=== PATIENT | female | born 1980 | race African-American/Black ===

== ENCOUNTER 2020-12-03 23:19 | Emergency (ER) | payer MEDICAID ==
[~2020-12-03] VITALS: Ht 162.6 cm; Wt 87.0 kg
[2020-12-04] MEDS ORDERED: IBUPROFEN 600MG TABLET PO STA (00:10)
[2020-12-04 00:28] LABS: BASOPHILS % 0.4 % (0.0-2.0); EOSINOPHILS % 2.5 % (0.0-5.0); HEMATOCRIT. 35.8 % (36.0-48.0); HEMOGLOBIN. 11.2 g/dL (12.0-16.0); LYMPHOCYTES % 29.7 % (20.0-50.0); MEAN CORPUSCULAR HEMOGLOBIN 24.3 pg (28.0-32.0); MEAN CORPUSCULAR VOLUME 77.7 fL (81.0-99.0); MONOCYTES % 8.1 % (2.0-8.0); NEUTROPHILS % 59.3 % (40.0-76.0); PLATELET 274 x1000/uL (130-400); RED CELL DISTRIBUTION WIDTH 14.6 % (11.6-14.6)
[2020-12-04 00:33] LABS: CHLORIDE 105 mEq/L (98-107)
[2020-12-04] MEDS ORDERED: IBUP-2029 MT (01:49)
[2020-12-04 01:58] VITALS: BP 129/87
== END 2020-12-04 01:58 | disposition home or self-care (01) ==
LOC: ER 23:19
DX: R09.1 Pleurisy (principal)
CPT/HCPCS: 36415; 71045; 80053; 81025; 84484; 85025; 85379; 93005; 99285